=== PATIENT | female | born 1945 | race Caucasian/White ===

== ENCOUNTER 2022-06-08 10:03 | Emergency (ER) | payer MEDICARE ==
[2022-06-08] MEDS ORDERED: SODIUM CHLORIDE 0.9% 500 ML 500 ML IV STA (10:16)
--- NOTE | 2022-06-08 10:22 | ED ---
General Adult HPI - General Stated complaint: Rectal Bleed Time Seen by Provider: 06/08/22 10:03 - History of Present Illness Initial comments: Dictation was produced using [employer] dictation software. please excuse any grammatical, word or spelling errors. Chief Complaint: 77-year-old female presents emergency department via EMS for GI bleed History of Present Illness: 77-year-old female poor historian and she has history of dementia. EMS provides history present illness. EMS allegedly was called for massive GI bleed. She was found this morning to have large amounts of blood mixed with stool in her bed. Patient allegedly has history of rectal disease. Patient unable to provide history of present illness secondary to history of dementia. It is unclear if patient takes any adequate evaluation medications. EMS estimated 750 mL of blood upon initial evaluation Unable to obtain ROS secondary to chronic mental status. PHYSICAL EXAM: General Impression: Alert, not in acute distress HEENT: Normocephalic atraumatic, extra-ocular movements intact, pupils equal and reactive to light bilaterally, mucous membranes moist. Cardiovascular: Heart regular rate and rhythm Chest: Able to complete full sentences, no retractions, no tachypnea Abdomen: abdomen soft, non-tender, non-distended, no organomegaly Musculoskeletal: Pulses present and equal in all extremities, no peripheral edema Motor: no focal deficits noted Neurological: CN II-XII grossly intact, no focal motor or sensory deficits noted Skin: Intact with no visualized rashes Psych: Normal affect and mood Rectal: Large amounts of dark red blood mixed with stool no obvious source of bleeding on rectal examination ED course: 77-year-old female presents emergency department for large GI bleed. More history obtained from patient's who states that she is not an anticoagulation medications. States that she does not have any history of GI bleed. Laboratory evaluation obtained. Hemoglobin stable at 10.5. Coag panel is unremarkable. Metabolic panel was within acceptable limits. Abdominal labs are negative. Patient given Protonix and 2 units of blood. Initial intention was to have patient transferred to [facility] for further care however they did not have any beds available. Contact to [facility] was went except patient for urinary ER transfer. Case discussed with Dr. White. Critical Care: Yes Critical Care time: 33 minutes - Related Data Allergies Allergy/AdvReac Type Severity Reaction Status Date / Time Unable to Assess Allergy Verified 06/08/22 10:22 Review of Systems ROS Statement: Those systems with pertinent positive or pertinent negative responses have been documented in the HPI. ROS Other: All systems not noted in ROS Statement are negative. Course Vital Signs 06/08/22 06/08/22 06/08/22 10:05 10:32 10:40 Temperature 98.1 F Pulse Rate 78 85 84 Respiratory 18 18 18 Rate Blood Pressure 116/92 96/64 96/75 O2 Sat by Pulse 95 95 95 Oximetry 06/08/22 06/08/22 11:25 12:00 Temperature Pulse Rate 73 86 Respiratory 18 18 Rate Blood Pressure 100/68 94/67 O2 Sat by Pulse 95 94 L Oximetry Medical Decision Making - Lab Data Result diagrams: 06/08/22 10:31 06/08/22 11:50 Lab Results 06/08/22 06/08/22 06/08/22 Range/Units 10:31 10:31 11:30 WBC 6.9 (3.8-10.6) k/uL RBC 3.36 L (3.80-5.40) m/uL Hgb 10.5 L (11.4-16.0) gm/dL Hct 31.6 L (34.0-46.0) % MCV 94.0 (80.0-100.0) fL MCH 31.1 (25.0-35.0) pg MCHC 33.1 (31.0-37.0) g/dL RDW 11.9 (11.5-15.5) % Plt Count 251 (150-450) k/uL MPV 10.0 Neutrophils % 77 % Lymphocytes % 16 % Monocytes % 5 % Eosinophils % 1 % Basophils % 0 % Neutrophils # 5.3 (1.3-7.7) k/uL Lymphocytes # 1.1 (1.0-4.8) k/uL Monocytes # 0.3 (0-1.0) k/uL Eosinophils # 0.1 (0-0.7) k/uL Basophils # 0.0 (0-0.2) k/uL PT 11.1 (9.0-12.0) sec INR 1.0 (<1.2) APTT 19.1 L (22.0-30.0) sec Sodium (137-145) mmol/L Potassium (3.5-5.1) mmol/L Chloride (98-107) mmol/L Carbon Dioxide (22-30) mmol/L Anion Gap mmol/L BUN (7-17) mg/dL Creatinine (0.52-1.04) mg/dL Est GFR (CKD-EPI)AfAm (>60 ml/min/1.73 sqM) Est GFR (CKD-EPI)NonAf (>60 ml/min/1.73 sqM) Glucose (74-99) mg/dL Calcium (8.4-10.2) mg/dL Total Bilirubin (0.2-1.3) mg/dL AST (14-36) U/L ALT (4-34) U/L Alkaline Phosphatase (38-126) U/L Troponin I (0.000-0.034) ng/mL Total Protein (6.3-8.2) g/dL Albumin (3.5-5.0) g/dL Blood Type Recheck No Previous Record Bld Type Recheck Status CABO Indicated Spec Expiration Date 06/11/2022 - 232906/08/22 06/08/22 Range/Units 11:50 11:50 WBC (3.8-10.6) k/uL RBC (3.80-5.40) m/uL Hgb (11.4-16.0) gm/dL Hct (34.0-46.0) % MCV (80.0-100.0) fL MCH (25.0-35.0) pg MCHC (31.0-37.0) g/dL RDW (11.5-15.5) % Plt Count (150-450) k/uL MPV Neutrophils % % Lymphocytes % % Monocytes % % Eosinophils % % Basophils % % Neutrophils # (1.3-7.7) k/uL Lymphocytes # (1.0-4.8) k/uL Monocytes # (0-1.0) k/uL Eosinophils # (0-0.7) k/uL Basophils # (0-0.2) k/uL PT (9.0-12.0) sec INR (<1.2) APTT (22.0-30.0) sec Sodium 139 (137-145) mmol/L Potassium 4.2 (3.5-5.1) mmol/L Chloride 111 H (98-107) mmol/L Carbon Dioxide 23 (22-30) mmol/L Anion Gap 5 mmol/L BUN 23 H (7-17) mg/dL Creatinine 0.60 (0.52-1.04) mg/dL Est GFR (CKD-EPI)AfAm >90 (>60 ml/min/1.73 sqM) Est GFR (CKD-EPI)NonAf 90 (>60 ml/min/1.73 sqM) Glucose 93 (74-99) mg/dL Calcium 7.9 L (8.4-10.2) mg/dL Total Bilirubin 0.6 (0.2-1.3) mg/dL AST 22 (14-36) U/L ALT 17 (4-34) U/L Alkaline Phosphatase 60 (38-126) U/L Troponin I 0.020 (0.000-0.034) ng/mL Total Protein 5.5 L (6.3-8.2) g/dL Albumin 3.2 L (3.5-5.0) g/dL Blood Type Recheck Bld Type Recheck Status Spec Expiration Date Disposition Clinical Impression: GI bleed Disposition: OTHER INSTITUTION NOT DEFINED Condition: Serious Referrals: Nonstaff,Physician [Primary Care Provider] - 1-2 days Time of Disposition: 13:06 - Out of Hospital Transfer - Req. Specs Out of Hospital Transfer - Requested Specifics: Other Emergency Center ([facility])
[2022-06-08 10:59] LABS: Basophils % (A) 0 %; Eosinophils # (A) 0.1 k/uL (0-0.7); Eosinophils % (A) 1 %; HCT 31.6 % (34.0-46.0); HGB 10.5 gm/dL (11.4-16.0); Lymphocytes # (A) 1.1 k/uL (1.0-4.8); Lymphocytes % (A) 16 %; MCH 31.1 pg (25.0-35.0); MCHC 33.1 g/dL (31.0-37.0); Monocytes # (A) 0.3 k/uL (0-1.0); Monocytes % (A) 5 %; Neutrophils # (A) 5.3 k/uL (1.3-7.7); Neutrophils % (A) 77 %; Platelet Count 251 k/uL (150-450); RBC 3.36 m/uL (3.80-5.40); RDW 11.9 % (11.5-15.5); WBC 6.9 k/uL (3.8-10.6)
[2022-06-08 11:08] LABS: Prothrombin Time 11.1 sec (9.0-12.0)
[2022-06-08 11:32] LABS: Partial Thromboplastin Time 19.1 sec (22.0-30.0)
[2022-06-08] MEDS ORDERED: PANTOPRAZOLE 40 MG/10 ML VIAL IVP STA (12:23)
[2022-06-08 12:40] LABS: ALT 17 U/L (4-34); AST 22 U/L (14-36); African American GFR (CKD) >90 (>60 ml/min/1.73 sqM); Albumin 3.2 g/dL (3.5-5.0); Alkaline Phosphatase 60 U/L (38-126); Anion Gap 5 mmol/L; Blood Urea Nitrogen 23 mg/dL (7-17); Calcium 7.9 mg/dL (8.4-10.2); Carbon Dioxide 23 mmol/L (22-30); Chloride 111 mmol/L (98-107); Glucose 93 mg/dL (74-99); Non-African American GFR(CKD) 90 (>60 ml/min/1.73 sqM); Potassium 4.2 mmol/L (3.5-5.1); Sodium 139 mmol/L (137-145); Total Bilirubin 0.6 mg/dL (0.2-1.3); Total Protein 5.5 g/dL (6.3-8.2)
[2022-06-08 14:18] VITALS: BP 104/65; PULSE 90; RESP 18; TEMP 97.8
== END 2022-06-08 14:15 | disposition other institution (70) ==
LOC: EC 10:03
DX: K92.2 Gastrointestinal hemorrhage, unspecified (principal)
CPT/HCPCS: 99291 ×2; 36430 ×2; 36415; 93005; 86900; 86901; 80053; 84484; 85025; 85610; 85730; 86850; 86920; P9016; C9113